=== PATIENT | male | born 1945 | race Caucasian/White ===

== ENCOUNTER 2023-03-22 11:01 | Outpatient (CLI) | payer MEDICARE, SELFPAY ==
[2023-03-22 11:05] VITALS: BMI 31.4
[2023-03-22 11:31] LABS: Basophils % 0.3 % (0.1-2.0); Eosinophils # 0.1 K/mm3 (0.0-0.4); Eosinophils % 1.8 % (0.1-12.0); Hematocrit 40.3 % (42.0-52.0); Hemoglobin 13.2 g/dL (14.1-18.0); Lymphocytes % 28.3 % (10-50); Mean Corpuscular HGB Conc 32.8 g/dL (31.8-35.4); Mean Corpuscular Hemoglobin 33.9 pg (27.0-31.2); Mean Corpuscular Volume 103.2 fl (80-94); Mean Platelet Volume 9.9 fl (7.4-10.4); Monocytes # 0.3 K/mm3 (0.1-1.0); Monocytes % 6.8 % (1.7-9.3); Neutrophils # 2.3 K/mm3 (1.8-7.8); Neutrophils % 62.7 % (37.0-80.0); Platelet Count 75 K/mm3 (142-424); Red Blood Count 3.91 M/mm3 (4.60-6.20); Red Cell Distribution Width 15.5 % (11.5-17.5); White Blood Count 3.7 K/mm3 (4.8-10.8)
== END 2023-03-22 11:15 | disposition home or self-care (01) ==
LOC: INF 11:02
PROVIDERS: PCP Nurse Practitioner Family; Visit Provider Internal Medicine Medical Oncology
DX: D69.3 Immune thrombocytopenic purpura (principal)
CPT/HCPCS: 36415; 85025

== ENCOUNTER 2023-04-04 09:39 | Outpatient (CLI) | payer MEDICARE, SELFPAY ==
[2023-04-04 09:45] VITALS: BMI 32.3
--- NOTE | 2023-04-04 09:55 | PC.NURSE ---
0955-collected labs via venipuncture stick with butterfly needle in left ac;with amaury from lab as witness; pt ok to d/c home.
[2023-04-04 10:08] LABS: Reticulocyte % (Auto) 1.5 % (0.9-3.2)
[2023-04-04 10:13] LABS: Basophils % 0.7 % (0.1-2.0); Eosinophils # 0.1 K/mm3 (0.0-0.4); Eosinophils % 1.9 % (0.1-12.0); Hematocrit 40.6 % (42.0-52.0); Hemoglobin 13.3 g/dL (14.1-18.0); Lactate Dehydrogenase 157 U/L (313-618); Lymphocytes # 0.7 K/mm3 (0.7-4.5); Lymphocytes % 23.1 % (10-50); Mean Corpuscular HGB Conc 32.7 g/dL (31.8-35.4); Mean Corpuscular Hemoglobin 33.9 pg (27.0-31.2); Mean Corpuscular Volume 103.6 fl (80-94); Mean Platelet Volume 9.5 fl (7.4-10.4); Monocytes # 0.2 K/mm3 (0.1-1.0); Monocytes % 8.1 % (1.7-9.3); Neutrophils # 1.9 K/mm3 (1.8-7.8); Neutrophils % 66.3 % (37.0-80.0); Platelet Count 84 K/mm3 (142-424); Red Blood Count 3.92 M/mm3 (4.60-6.20); Red Cell Distribution Width 15.4 % (11.5-17.5); White Blood Count 2.9 K/mm3 (4.8-10.8)
[2023-04-04 10:36] LABS: Iron 85 ug/dL (49-181)
[2023-04-04 10:43] LABS: Alanine Aminotransferase 20 U/L (12-78); Albumin/Globulin Ratio 1.5 (1.1-1.8); Alkaline Phosphatase 94 U/L (38-126); Anion Gap 10.7 mEq/L (5-15); Aspartate Amino Transferase 36 U/L (17-59); Bilirubin,Total 0.7 mg/dl (0.2-1.3); Blood Urea Nitrogen 26 mg/dl (9-20); Calcium 9.5 mg/dl (8.4-10.2); Carbon Dioxide 31 mmol/L (22.0-30.0); Chloride 102 mmol/L (98-107); Creatinine Clearance Estimated 74 mL/min (50-200); Estimated Glomerular Filt Rate 53 ml/min (>60); GFR (African American) 64 ML/MIN (>60); Globulin 2.7 g/dL (1.3-3.2); Glucose 91 mg/dl (74-100); Potassium 4.7 mmoL/L (3.5-5.1); Sodium 139 mmol/L (136-145); Total Protein,Serum 6.7 g/dl (6.3-8.2)
[2023-04-04 10:44] LABS: Total Iron Binding Capacity 367 ug/dL (261-462)
[2023-04-04 10:50] LABS: Ferritin 50.9 ng/ml (17.9-464)
[2023-04-04 11:21] LABS: Vitamin B12 527 pg/mL (239-931)
[2023-04-04 11:22] LABS: Folate > 20.00 ng/mL
[2023-04-05 12:13] LABS: Haptoglobin 54 mg/dL (34-355)
== END 2023-04-04 09:58 | disposition home or self-care (01) ==
LOC: INF 09:42
PROVIDERS: PCP Nurse Practitioner Family; Visit Provider Internal Medicine Medical Oncology
DX: D46.Z Other myelodysplastic syndromes (principal)
CPT/HCPCS: 36415; 80053; 82607; 82728; 82746; 83010; 83540; 83550; 83615; 85025; 85044; 86880

== ENCOUNTER 2023-06-08 09:58 | Outpatient (CLI) | payer MEDICARE, SELFPAY ==
--- NOTE | 2023-06-08 10:00 | CA_ITS ---
APPROVED REPORT EXAM: Comprehensive 2D, Doppler, and color-flow Echocardiogram Processing Lead: Gina Pena CRT Ht: 6 ft 2 in Wt: 241lbs BSA: 2.35 BP: 90/60 mmHg Indications: HX Maze procedure 2005, Abnormal ECG, Shortness of Breath, Dyspnea, Hyperlipidemia, Cardiomyopathy, Hypertension/HDD 2D Dimensions LA Volume 216.50 mL LA Volume Index 89.80 mL/m2 (M/F) 16-34 M-Mode Dimensions RVDd 3.58 cm (0.9-2.6) LA Diam 7.08 cm (1.9-4.0) LVDd 5.55 cm (3.5-5.7) LVDs 4.43 cm (3.5-5.7) IVSd 1.34 cm (0.6-1.1) PWd 1.30 cm (0.6-1.1) EF (Teich) 40.80% FS 20.20% EDV (Teich) 150.50 mL TAPSE 1.53 (<1.7) ESV (Teich) 89.10 mL LV Diastology E Decel Time 103 (160-240 msec) E/A Ratio 5.91 MED A' 3.80 cm/s LAT A' 10.20 cm/s Aortic Valve AO Peak GR. 4.20 mmHg Mitral Valve MV A Velocity 11.0 (40-130 cm/s) E/A Ratio 5.91 Pulmonary Valve PV Peak Velocity 143.0 (50-150 cm/s) Tricuspid Valve TR P. Velocity 352.00 cm/s RAP Estimate 10.00 mmHg RVSP 59.70 mmHg Left Ventricle The left ventricle is normal size. The left ventricular systolic function is normal. The left ventricular ejection fraction is within the normal range. There is normal left ventricular wall thickness. There is normal LV segmental wall motion. Diastolic function is indeterminate due to atrial fibrillation. LVEF is 55%. Right Ventricle The right ventricle is mildly dilated. The right ventricular systolic function is normal. Atria The left atrium is severely dilated. The right atrium is severely dilated. There is no Doppler evidence of interatrial shunt. Aortic Valve The aortic valve opens well. There is no aortic valvular stenosis. No aortic regurgitation is present. Mitral Valve There is mild prolapse of the posterior mitral valve leaflet. No evidence of mitral valve stenosis. Mild mitral regurgitation. Tricuspid Valve The tricuspid valve leaflets are thin and pliable. Mild tricuspid regurgitation. RVSP is 45???50 the IVC is plethoric. mmHg. Pulmonic Valve The pulmonary valve is normal in structure. Trace pulmonic regurgitation. Great Vessels The aortic root is normal in size. The ascending aorta is normal in size. The IVC is plethoric. Pericardium There is no pericardial effusion. Other Information Study Quality: Fair Conclusion Normal biventricular systolic function. Mild RV dilation. Severe biatrial dilation. Mild MR. Mild TR. Elevated RVSP 45-50 mmHg. Of note, the patient was in atrial fibrillation during the acquisition of the study images. Electronically signed by : Joselin Chinchilla MD 06/11/2023 01:34:56
== END 2023-06-08 23:59 ==
PROVIDERS: PCP Nurse Practitioner Family; Visit Provider Nurse Practitioner
DX: I10 Essential (primary) hypertension (principal); I27.21 Secondary pulmonary arterial hypertension; I50.20 Unspecified systolic (congestive) heart failure; R06.00 Dyspnea, unspecified; R94.31 Abnormal electrocardiogram [ECG] [EKG]
CPT/HCPCS: 93306

== ENCOUNTER 2023-09-06 08:58 | Outpatient (CLI) | payer MEDICARE, SELFPAY ==
--- NOTE | 2023-09-06 09:03 | CT_ITS ---
FINAL REPORT CLINICAL HISTORY: APHASIA COMPARISON: None FINDINGS: Axial images of the head were obtained without contrast. Coronal and sagittal reformatted images were also obtained. This study was performed with techniques to keep radiation doses as low as reasonably achievable (ALARA). Individualized dose reduction techniques using automated exposure control or adjustment of mA and/or kV according to the patient's size were employed. There is generalized age-appropriate atrophy. Periventricular low-attenuation areas are seen consistent with mild chronic ischemic changes. There is no evidence of intracranial hemorrhage or mass. There is no evidence of acute infarct. There is no evidence of shift of the midline structures. No skull abnormality is seen on the bone window images. There is mild maxillary sinus mucosal thickening noted bilaterally. IMPRESSION: Atrophy and mild periventricular chronic ischemic changes. No acute intracranial abnormality identified. Mild bilateral maxillary sinus mucosal thickening. Reviewed, Interpreted and Dictated by Ernesto Sommers III, MD Transcribed by Tea Barahona Authenticated and [facility]
== END 2023-09-06 23:59 | disposition home or self-care (01) ==
LOC: RAD 08:58
PROVIDERS: PCP Nurse Practitioner Family; Visit Provider Nurse Practitioner Family
DX: R47.01 Aphasia (principal)
CPT/HCPCS: 70450

== ENCOUNTER 2023-10-02 11:53 | Outpatient (CLI) | payer MEDICARE, SELFPAY ==
[2023-10-02 11:58] VITALS: BMI 31.8
--- NOTE | 2023-10-02 12:01 | PC.NURSE ---
1201-collected labs via venipuncture stick in left ac with butterfly needle;pt to d/c home and md will check lab results.
[2023-10-02 12:11] LABS: Basophils # 0.1 K/mm3 (0-0.2); Basophils % 1.7 % (0.1-2.0); Eosinophils # 0.1 K/mm3 (0.0-0.4); Eosinophils % 1.8 % (0.1-12.0); Hematocrit 45.7 % (42.0-52.0); Lymphocytes # 0.8 K/mm3 (0.7-4.5); Lymphocytes % 21.9 % (10-50); Mean Corpuscular HGB Conc 30.7 g/dL (31.8-35.4); Mean Corpuscular Hemoglobin 32.1 pg (27.0-31.2); Mean Corpuscular Volume 104.7 fl (80-94); Mean Platelet Volume 9.8 fl (7.4-10.4); Monocytes # 0.2 K/mm3 (0.1-1.0); Monocytes % 5.5 % (1.7-9.3); Neutrophils # 2.6 K/mm3 (1.8-7.8); Neutrophils % 69.2 % (37.0-80.0); Platelet Count 86 K/mm3 (142-424); Red Blood Count 4.37 M/mm3 (4.60-6.20); Red Cell Distribution Width 16.2 % (11.5-17.5); White Blood Count 3.7 K/mm3 (4.8-10.8)
[2023-10-02 12:14] LABS: Chloride 104 mmol/L (98-107); Potassium 4.1 mmoL/L (3.5-5.1); Sodium 140 mmol/L (136-145)
[2023-10-02 12:16] LABS: Blood Urea Nitrogen 29 mg/dl (9-20); Creatinine Clearance Estimated 72 mL/min (50-200); Estimated Glomerular Filt Rate 53 ml/min (>60); GFR (African American) 64 ML/MIN (>60)
[2023-10-02 12:17] LABS: Alanine Aminotransferase 22 U/L (12-78); Albumin Level 3.6 g/dl (3.5-5.0); Albumin/Globulin Ratio 1.4 (1.1-1.8); Alkaline Phosphatase 89 U/L (38-126); Anion Gap 8.1 mEq/L (5-15); Aspartate Amino Transferase 34 U/L (17-59); Bilirubin,Total 1.1 mg/dl (0.2-1.3); Calcium 9.6 mg/dl (8.4-10.2); Carbon Dioxide 32 mmol/L (22.0-30.0); Globulin 2.6 g/dL (1.3-3.2); Glucose 98 mg/dl (74-100); Total Protein,Serum 6.2 g/dl (6.3-8.2)
== END 2023-10-02 12:03 | disposition home or self-care (01) ==
LOC: INF 11:54
PROVIDERS: PCP Nurse Practitioner Family; Visit Provider Internal Medicine Medical Oncology
DX: D64.9 Anemia, unspecified (principal)
CPT/HCPCS: 36415; 80053; 85025

== ENCOUNTER 2023-10-24 15:00 | Outpatient (CLI) | payer MEDICARE, SELFPAY ==
--- NOTE | 2023-10-24 15:08 | XR_ITS ---
FINAL REPORT TECHNIQUE: Chest PA & Lateral CLINICAL HISTORY: CARDIOMYOPATHY FINDINGS: 2 views of the chest were performed. There is moderate cardiomegaly. A moderate hiatal hernia is seen. The mediastinum is within normal limits. Scarring is seen in the right lung base. There is no acute cardiopulmonary process. There are no pleural effusions. There is no pneumothorax. The bony thorax appears intact. IMPRESSION: Moderate cardiomegaly. Scarring in the right lung base with no acute pulmonary abnormality. Reviewed, Interpreted and Dictated by Jamie Cortes MD Transcribed by Arelis Medrano Authenticated and [facility]
== END 2023-10-24 23:59 | disposition home or self-care (01) ==
LOC: RAD 15:01
PROVIDERS: PCP Nurse Practitioner Family; Visit Provider Nurse Practitioner Family
DX: I42.8 Other cardiomyopathies (principal)
CPT/HCPCS: 71046

== ENCOUNTER 2023-11-10 15:34 | Emergency (ER) | payer MEDICARE, SELFPAY ==
[2023-11-10 15:35] VITALS: BP 116/89; PULSE 71; RESP 18; TEMP 36.7; O2SAT 95; BMI 30.8
--- NOTE | 2023-11-10 15:52 | PC.NURSE ---
Dr. Johnson at BS for pt eval
--- NOTE | 2023-11-10 16:03 | ED_ITS ---
Discharge Plan Disposition Patient Disposition: Home, Self-Care Prescriptions Prescriptions: No Action allopurinol 300 mg tablet 300 mg PO DAILY Eliquis 2.5 mg tablet 2.5 mg PO BID lamotrigine 100 mg tablet 100 mg PO DAILY atorvastatin 20 mg tablet 20 mg PO HS diphenhydramine HCl [Allergy (diphenhydramine)] 25 mg tablet 25 mg PO HS PRN multivitamin [Daily Multi-Vitamin] Tablet 1 tab PO DAILY metoprolol succinate 100 mg tablet extended release 24 hr 100 mg PO DAILY montelukast 10 mg tablet 10 mg PO DAILY bumetanide 1 mg tablet 1 mg PO DAILY PRN (Reason: edema) Qty: 180 1RF levalbuterol tartrate [Xopenex HFA] 45 mcg/actuation HFA aerosol inhaler 2 inh inhalation Q6H PRN (Reason: shortness of breath or wheezing) 90 Days Qty: 15 3RF spironolactone [Aldactone] 50 mg tablet 50 mg PO DAILY Qty: 90 1RF Jardiance 10 mg tablet 10 mg PO DAILY Qty: 90 1RF digoxin 125 mcg (0.125 mg) tablet 125 mcg PO .MWF Qty: 15 5RF diltiazem HCl 240 mg capsule,extended release 24 hr 240 mg PO DAILY Qty: 30 5RF Referrals Follow up/Referrals: Provider,Referral, MD [Primary Care Provider] - See instructions Activity Restrictions/Add. Instructions Additional Instructions/Restrictions: Your anterior epistaxis was able to be controlled with direct compression and silver nitrate cautery. Please return with any significant bleeding you may continue your Eliquis as previously instructed. Clinical Impressions Clinical Impression: Anterior epistaxis Instructions Patient Instructions: DI for Nosebleed Discharge ED Provider: Gagna Olivera General Adult HPI General Chief complaint: Epistaxis Stated complaint: nose bleed Time Seen by Provider: 11/10/23 15:46 Mode of Arrival: Wheelchair Source of Information: Patient and Spouse Limitations: No Limitations Description of Symptoms (Recalled from ER Triage Doc. by RN): nose bleed x1 hr. on blood thinners History of Present Illness HPI narrative: Patient is an 78-year-old male on Eliquis due to atrial fibrillation presenting today with right anterior nosebleed. This happened numerous times in the past he is required a Rhino Rocket in the past. He had a nasal compression device on prior to arrival. Related Data Home Medications Medication Instructions Recorded Confirmed allopurinol 300 mg tablet 300 mg PO DAILY 12/15/22 10/02/23 apixaban 2.5 mg tablet (Eliquis) 2.5 mg PO BID 12/15/22 10/02/23 atorvastatin 20 mg tablet 20 mg PO HS 12/15/22 10/02/23 lamotrigine 100 mg tablet 100 mg PO DAILY 12/15/22 10/02/23 diphenhydramine HCl 25 mg tablet 25 mg PO HS PRN 01/03/23 10/02/23 (Allergy (diphenhydramine)) multivitamin (Daily Multi-Vitamin 1 tab PO DAILY 01/03/23 10/02/23 tablet) metoprolol succinate 100 mg 100 mg PO DAILY 07/04/23 10/02/23 tablet,extended release 24 hr montelukast 10 mg tablet 10 mg PO DAILY 07/04/23 10/02/23 Previous Rx's Medication Instructions Recorded empagliflozin 10 mg tablet 10 mg PO DAILY #90 tabs 04/06/23 (Jardiance) levalbuterol tartrate 45 2 inh inhalation Q6H PRN shortness 04/06/23 mcg/actuation aerosol inhaler of breath or wheezing 90 days #15 (Xopenex HFA) grams spironolactone 50 mg tablet 50 mg PO DAILY #90 tabs 04/06/23 (Aldactone) bumetanide 1 mg tablet 1 mg PO DAILY PRN edema #180 tabs 05/07/23 digoxin 125 mcg (0.125 mg) tablet 125 mcg PO .MWF #15 tabs 09/20/23 diltiazem HCl 240 mg capsule,24 240 mg PO DAILY #30 caps 09/20/23 hr,extended release Allergies Allergy/AdvReac Type Severity Reaction Status Date / Time lisinopril AdvReac Mild Hyperkalemi Uncoded 10/02/23 11:31 a [facility] Disclaimer: The information contained in this section may have been updated after the patient was seen, as this information can be updated by other users. Medical History Allergic rhinitis History of asthma Dyspnea on exertion HTN (hypertension) Abnormal electrocardiogram [ECG] [EKG] Systolic heart failure Cardiomyopathy Anxiety Depression HLD (hyperlipidemia) HTN (hypertension), benign Surgical History History of arthroscopy of right shoulder History of total right knee replacement History of back surgery Hx of tonsillectomy Family History Other Cancer Social History Smoking Status: Never smoker alcohol intake: current alcohol intake frequency: a few times a week current occupational status: retired Travel in the last 8 weeks: None ROS Obtained: Yes All systems reviewed & no additional complaints except as documented Physical Exam General General appearance: alert and in no apparent distress ENT ENT exam: Present other (Right anterior epistaxis identified nasal compression device removed no significant posterior hemorrhaging) Respiratory Respiratory exam: Present normal lung sounds bilaterally Cardiovascular Cardiovascular exam: Present regular rate Neurological Exam Neurological exam: Present alert and oriented X3 Medical Decision Making Arnulfo Inquiry Pt receiving controlled substance: No Vital Signs: 11/10/23 15:35 11/10/23 16:30 11/10/23 16:41 Temperature 98.1 F 98.1 F Temperature Source Oral Oral Pulse Rate 68 68 Pulse Rate [Right] 71 Respiratory Rate 18 16 Blood Pressure 127/74 127/74 Blood Pressure [Right Arm] 116/89 Blood Pressure Mean [Right Arm] 98 Blood Pressure Source Automatic Cuff Blood Pressure Position Sitting 02 Sat by Pulse Oximetry 95 94 L Oxygen Delivery Method Room Air Room Air Room Air Medical Decision Narrative: Patient anticoagulated on Eliquis presents today with significant right anterior epistaxis. Procedure performed for cautery of the anterior bleed with adequate control nasal compression device additionally placed on top of this will reassess in 15 to 30 minutes. Reassessment 4:40 PM patient is controlled from hemorrhage standpoint. No active bleeding I advised that he continue his Eliquis at home return to the emergency room with any significant worsening of his bleeding. He has been given a compression device to take home also advised to take Afrin and use a compression to attempt to get the bleeding under control at home before he comes back in. Procedures Epistaxis Control Time Out Performed: No Nostril: right Direct Inspection: anterior source identified Clots Removed by: blowing nose Cautery Used: silver nitrate Critical Care Critical Care Time Critical Care Time: No
[2023-11-10 16:30] VITALS: BP 127/74; PULSE 68; O2SAT 94
--- NOTE | 2023-11-10 16:35 | PC.NURSE ---
Dr. Johnson at to reassess
[2023-11-10 16:41] VITALS: BP 127/74; PULSE 68; RESP 16; TEMP 36.7; O2SAT 94
== END 2023-11-10 16:43 | disposition home or self-care (01) ==
PROVIDERS: Emergency Provider Emergency Medicine
DX: R04.0 Epistaxis (principal); I48.0 Paroxysmal atrial fibrillation; Z79.01 Long term (current) use of anticoagulants
CPT/HCPCS: 30901; 99283

== ENCOUNTER 2023-11-20 09:43 | Outpatient (CLI) | payer MEDICARE, SELFPAY | END 2023-11-20 23:59 | disposition home or self-care (01) | LOC: RT 09:43 | PROVIDERS: PCP Nurse Practitioner Family; Visit Provider Nurse Practitioner Family | DX: R06.09 Other forms of dyspnea (principal) | CPT/HCPCS: 94060; 94618; 94727; 94729 ==

== ENCOUNTER 2024-01-01 11:16 | Outpatient (CLI) | payer MEDICARE, SELFPAY ==
[2024-01-01 11:18] VITALS: BMI 31.8
[2024-01-01 11:45] LABS: Alanine Aminotransferase 21 U/L (12-78); Albumin/Globulin Ratio 1.3 (1.1-1.8); Alkaline Phosphatase 73 U/L (38-126); Anion Gap 9.7 mEq/L (5-15); Aspartate Amino Transferase 39 U/L (17-59); Bilirubin,Total 1.4 mg/dl (0.2-1.3); Blood Urea Nitrogen 41 mg/dl (9-20); Calcium 9.7 mg/dl (8.4-10.2); Carbon Dioxide 29 mmol/L (22.0-30.0); Chloride 102 mmol/L (98-107); Creatinine Clearance Estimated 59 mL/min (50-200); Estimated Glomerular Filt Rate 42 ml/min (>60); GFR (African American) 51 ML/MIN (>60); Globulin 3.2 g/dL (1.3-3.2); Glucose 101 mg/dl (74-100); Potassium 4.7 mmoL/L (3.5-5.1); Sodium 136 mmol/L (136-145); Total Protein,Serum 7.2 g/dl (6.3-8.2)
[2024-01-01 11:48] LABS: Basophils % 0.6 % (0.1-2.0); Eosinophils # 0.1 K/mm3 (0.0-0.4); Eosinophils % 1.4 % (0.1-12.0); Hemoglobin 14.7 g/dL (14.1-18.0); Lymphocytes # 1.2 K/mm3 (0.7-4.5); Lymphocytes % 25.2 % (10-50); Mean Corpuscular HGB Conc 31.3 g/dL (31.8-35.4); Mean Corpuscular Volume 105.5 fl (80-94); Mean Platelet Volume 9.4 fl (7.4-10.4); Monocytes # 0.3 K/mm3 (0.1-1.0); Monocytes % 6.1 % (1.7-9.3); Neutrophils % 66.5 % (37.0-80.0); Platelet Count 114 K/mm3 (142-424); Red Blood Count 4.45 M/mm3 (4.60-6.20); White Blood Count 4.6 K/mm3 (4.8-10.8)
== END 2024-01-01 11:25 | disposition home or self-care (01) ==
LOC: INF 11:17
PROVIDERS: PCP Nurse Practitioner Family; Visit Provider Internal Medicine Medical Oncology
DX: D69.3 Immune thrombocytopenic purpura (principal)
CPT/HCPCS: 36415; 80053; 85025

== ENCOUNTER 2024-04-01 11:42 | Outpatient (CLI) | payer MEDICARE, SELFPAY ==
--- NOTE | 2024-04-01 11:51 | PC.NURSE ---
1151olya carlos collected labs via venipuncture stick with butterfly needle; to call results.
[2024-04-01 12:06] LABS: Basophils % 0.7 % (0.1-2.0); Eosinophils # 0.1 K/mm3 (0.0-0.4); Eosinophils % 1.5 % (0.1-12.0); Hemoglobin 14.7 g/dL (14.1-18.0); Lymphocytes # 0.9 K/mm3 (0.7-4.5); Lymphocytes % 21.7 % (10-50); Mean Corpuscular HGB Conc 35.1 g/dL (31.8-35.4); Mean Corpuscular Hemoglobin 34.8 pg (27.0-31.2); Mean Platelet Volume 8.4 fl (7.4-10.4); Monocytes # 0.3 K/mm3 (0.1-1.0); Monocytes % 6.1 % (1.7-9.3); Neutrophils # 2.9 K/mm3 (1.8-7.8); Neutrophils % 69.9 % (37.0-80.0); Platelet Count 102 K/mm3 (142-424); Red Blood Count 4.24 M/mm3 (4.60-6.20); Red Cell Distribution Width 15.9 % (11.5-17.5); White Blood Count 4.2 K/mm3 (4.8-10.8)
== END 2024-04-01 11:52 | disposition home or self-care (01) ==
LOC: INF 11:44
PROVIDERS: Visit Provider Internal Medicine Medical Oncology
DX: D46.Z Other myelodysplastic syndromes (principal)
CPT/HCPCS: 36415; 85025

== ENCOUNTER 2024-07-31 11:59 | Outpatient (CLI) | payer MEDICARE, SELFPAY ==
[2024-07-31 12:42] LABS: NT Pro Brain Natriuretic Pep. 2450 pg/mL (0-450)
[2024-07-31 13:09] LABS: Digoxin < 0.40 ng/ml (0.2-2.00)
--- NOTE | 2024-07-31 14:48 | PC.NURSE ---
1210-Blood drawn from left AC using butterfly needle. Labs ordered per Glynn Lau.
== END 2024-07-31 12:12 | disposition home or self-care (01) ==
PROVIDERS: PCP Nurse Practitioner Family; Visit Provider Physician Assistant
DX: I50.20 Unspecified systolic (congestive) heart failure (principal); R06.09 Other forms of dyspnea; I10 Essential (primary) hypertension; R94.31 Abnormal electrocardiogram [ECG] [EKG]; I48.11 Longstanding persistent atrial fibrillation; I48.91 Unspecified atrial fibrillation
CPT/HCPCS: 36415; 80162; 83880

== ENCOUNTER 2024-08-11 10:59 | Outpatient (CLI) | payer MEDICARE, SELFPAY ==
--- NOTE | 2024-08-11 11:02 | CA_ITS ---
APPROVED REPORT EXAM: Comprehensive 2D, Doppler, and color-flow Echocardiogram Ortho Rn: Gina Pena CRT Ht: 6 ft 2 in Wt: 241lbs BSA: 2.35 BP: 119/67 mmHg Indications: Abnormal ECG, Congestive Heart Failure, Atrial Fibrillation, Hyperlipidemia, Cardiomyopathy, Hypertension/HDD 2D Dimensions LA Volume 165.90 mL LA Volume Index 68.80 mL/m2 (M/F) 16-34 M-Mode Dimensions RVDd 3.40 cm (0.9-2.6) LA Diam 6.66 cm (1.9-4.0) LVDd 5.47 cm (3.5-5.7) LVDs 3.97 cm (3.5-5.7) IVSd 1.43 cm (0.6-1.1) PWd 1.11 cm (0.6-1.1) EF (Teich) 52.70% FS 27.40% EDV (Teich) 145.60 mL TAPSE 1.91 (<1.7) ESV (Teich) 68.80 mL LV Diastology E Decel Time 133 (160-240 msec) E/A Ratio 3.66 MED A' 5.20 cm/s LAT A' 5.50 cm/s Aortic Valve AO Peak GR. 4.20 mmHg Mitral Valve MV E Max Santy. 84.0 (40-130 cm/s) MV A Velocity 23.0 (40-130 cm/s) E/A Ratio 3.66 MV PHT 39.0 ms Pulmonary Valve PV Peak Velocity 132.0 (50-150 cm/s) Tricuspid Valve TR P. Velocity 398.00 cm/s RAP Estimate 10.00 mmHg RVSP 73.30 mmHg Left Ventricle The left ventricle is normal size. The left ventricular systolic function is normal. The left ventricular ejection fraction is within the normal range. There is increased LV wall thickness. Septal flattening is present, consistent with right-sided pressure/volume overload. Grade 3 diastolic dysfunction is present. LVEF is 55%. Right Ventricle Right ventricle is moderately dilated. There is possibly a small echodensity noted along the distal free wall of the RV, measuring 0.8 cm in diameter. This likely represents normal RV trabeculations, but true echodensity/thrombus cannot be entirely excluded. Right ventricle is mildly hypokinetic. Atria The left atrium is severely dilated. The right atrium is severely dilated. There is no Doppler evidence of interatrial shunt. Aortic Valve The aortic valve is mildly thickened. There is no aortic valvular stenosis. Trace aortic regurgitation. Mitral Valve The mitral valve is normal in structure. No evidence of mitral valve stenosis. Mild mitral regurgitation. Tricuspid Valve Tricuspid valve is grossly normal in structure and function. Moderate tricuspid regurgitation. RVSP is 50-55 mmHg. Pulmonic Valve The pulmonary valve is normal in structure. Mild pulmonic regurgitation. Great Vessels The aortic root is normal in size. IVC is normal in size and collapses >50% with inspiration. Pericardium There is no pericardial effusion. Other Information Study Quality: Fair Conclusion Normal LV systolic function. Septal flattening is present, consistent with right-sided pressure/volume overload. Moderately dilated RV with mild reduction in RV function. Moderate TR. Mild MR, mild PI. Markedly elevated RVSP 50-55 mmHg. There is possibly a small echodensity noted along the distal free wall of the RV, measuring 0.8 cm in diameter. This likely represents normal RV trabeculations, but true echodensity/thrombus cannot be entirely excluded. In the setting of possible distal RV echodensity, further evaluation with cardiac MRI (RV mass protocol) is suggested. Electronically signed by : Joselin Chinchilla MD 08/17/2024 21:53:49
--- NOTE | 2024-08-11 11:39 | XR_ITS ---
FINAL REPORT CLINICAL HISTORY: dyspnea COMPARISON: 10/24/2023 FINDINGS: 2 views of the chest were obtained . There is stable, moderate cardiomegaly. The mediastinum is within normal limits. There are mild increased markings at the right lung base which represent atelectasis or scarring. There is a small right pleural effusion. The left lung is clear. There is no pneumothorax. Osseous structures are unremarkable. IMPRESSION: Small right pleural effusion. Stable cardiomegaly. Reviewed, Interpreted and Dictated by Gildardo Ash MD Transcribed by Sandra Black Authenticated and [facility]
== END 2024-08-11 23:59 | disposition home or self-care (01) ==
LOC: RT 11:00
PROVIDERS: PCP Nurse Practitioner Family; Visit Provider Physician Assistant
DX: I51.7 Cardiomegaly (principal); I34.0 Nonrheumatic mitral (valve) insufficiency; I36.1 Nonrheumatic tricuspid (valve) insufficiency; I37.1 Nonrheumatic pulmonary valve insufficiency; R06.09 Other forms of dyspnea; R94.31 Abnormal electrocardiogram [ECG] [EKG]; I50.20 Unspecified systolic (congestive) heart failure; I48.11 Longstanding persistent atrial fibrillation
CPT/HCPCS: 71046; 93306

== ENCOUNTER 2024-08-15 09:52 | Outpatient (CLI) | payer MEDICARE, SELFPAY ==
[2024-08-15 10:47] LABS: NT Pro Brain Natriuretic Pep. 2290 pg/mL (0-450)
== END 2024-08-15 23:59 | disposition home or self-care (01) ==
LOC: LAB 09:54
PROVIDERS: PCP Nurse Practitioner Family; Visit Provider Physician Assistant
DX: I50.20 Unspecified systolic (congestive) heart failure (principal)
CPT/HCPCS: 36415; 83880

== ENCOUNTER 2024-09-16 12:03 | Outpatient (CLI) | payer MEDICARE, SELFPAY ==
--- NOTE | 2024-09-16 12:18 | XR_ITS ---
FINAL REPORT TECHNIQUE: Chest PA & Lateral CLINICAL HISTORY: SOB COMPARISON: 08/11/2024 FINDINGS: 2 views of the chest were performed. There is mild cardiomegaly. The mediastinum is within normal limits. Scarring or atelectasis is noted at the right lung base. There are no pleural effusions. There is no pneumothorax. The left shoulder prosthesis is noted. IMPRESSION: Scarring or atelectasis right lung base. Reviewed, Interpreted and Dictated by Jamie Cortes MD Transcribed by Pooja Simon Authenticated and [facility]
[2024-09-16 12:33] LABS: Basophils % 0.4 % (0.1-2.0); Eosinophils % 0.9 % (0.1-12.0); Hematocrit 39.7 % (42.0-52.0); Hemoglobin 13.1 g/dL (14.1-18.0); Lymphocytes # 0.8 K/mm3 (0.7-4.5); Lymphocytes % 16.2 % (10-50); Mean Corpuscular Hemoglobin 32.8 pg (27.0-31.2); Mean Corpuscular Volume 99.5 fl (80-94); Mean Platelet Volume 11.6 fl (7.4-10.4); Monocytes # 0.2 K/mm3 (0.1-1.0); Monocytes % 4.8 % (1.7-9.3); Neutrophils # 3.6 K/mm3 (1.8-7.8); Neutrophils % 77.3 % (37.0-80.0); Nucleated Red Blood Cells # 0 10^3/uL; Nucleated Red Blood Cells % 0 %; Platelet Count 91 K/mm3 (142-424); Red Blood Count 3.99 M/mm3 (4.60-6.20); Red Cell Distribution Width 15.4 % (11.5-17.5); Red Cell Distribution Width-SD 56.7 fL; White Blood Count 4.6 K/mm3 (4.8-10.8)
[2024-09-16 13:13] LABS: Alanine Aminotransferase 10 U/L (12-78); Albumin Level 4.2 g/dl (3.5-5.0); Alkaline Phosphatase 76 U/L (38-126); Anion Gap 10.2 mEq/L (5-15); Aspartate Amino Transferase 39 U/L (17-59); Bilirubin,Direct 0.3 mg/dl (0.0-0.4); Bilirubin,Indirect 0.9 mg/dL (0.0-0.9); Bilirubin,Total 1.2 mg/dl (0.2-1.3); Bilirubin,Unconjugated 0.9 mg/dL (0.0-1.1); Blood Urea Nitrogen 42 mg/dl (9-20); Calcium 9.7 mg/dl (8.4-10.2); Carbon Dioxide 28 mmol/L (22.0-30.0); Chloride 105 mmol/L (98-107); Cholesterol 171 mg/dl (140-200); Estimated Glomerular Filt Rate 53 ml/min (>60); GFR (African American) 64 ML/MIN (>60); Glucose 89 mg/dl (74-100); Potassium 5.2 mmoL/L (3.5-5.1); Sodium 138 mmol/L (136-145); Total Protein,Serum 7.2 g/dl (6.3-8.2); Triglycerides 49 mg/dl (30-150); VLDL Cholesterol 10 mg/dL (0-40)
[2024-09-16 13:24] LABS: Direct LDL Cholesterol 42.76 mg/dL (100-129); NT Pro Brain Natriuretic Pep. 1870 pg/mL (0-450)
[2024-09-16 13:42] LABS: Chol/HDL Ratio 1.5 (1-3.5); HDL Cholesterol 111 mg/dl (40-60)
[2024-09-16 13:46] LABS: Thyroid Stimulating Hormone 1.43 uIU/mL (0.465-4.68)
== END 2024-09-16 23:59 | disposition home or self-care (01) ==
LOC: RAD 12:04
PROVIDERS: PCP Nurse Practitioner Family; Visit Provider Physician Assistant
DX: I50.30 Unspecified diastolic (congestive) heart failure (principal); J45.909 Unspecified asthma, uncomplicated; R06.09 Other forms of dyspnea; I10 Essential (primary) hypertension
CPT/HCPCS: 36415; 71046; 80048; 80061; 80076; 83735; 83880; 84443; 85025

== ENCOUNTER 2024-10-08 12:25 | Outpatient (CLI) | payer MEDICARE, SELFPAY ==
--- NOTE | 2024-10-08 12:31 | XR_ITS ---
FINAL REPORT TECHNIQUE: Chest PA & Lateral CLINICAL HISTORY: COPD W/ACUTE EXACERBATION COMPARISON: 09/16/2024 FINDINGS: 2 views of the chest were performed. The heart size is mildly enlarged. The mediastinum is within normal limits. The lungs are underinflated. Atelectasis is noted at the lung bases. There are no pleural effusions. There is no pneumothorax. The bony thorax appears intact. IMPRESSION: Bibasilar atelectasis. Reviewed, Interpreted and Dictated by Jamie Cortes MD Transcribed by Priti Hand Authenticated and [facility]
== END 2024-10-08 23:59 | disposition home or self-care (01) ==
LOC: RAD 12:27
PROVIDERS: PCP Nurse Practitioner Family; Visit Provider Nurse Practitioner Family
DX: J44.1 Chronic obstructive pulmonary disease with (acute) exacerbation (principal); J98.11 Atelectasis; I51.7 Cardiomegaly
CPT/HCPCS: 71046